=== PATIENT | female | born 1955 | race Caucasian/White ===

== ENCOUNTER 2018-12-31 10:15 | Day surgery (SDC) | payer BC ==
[2018-12-31] MEDS ORDERED: LIDOCAINE 1% 2 ML INJ ID PRN (10:38)
[2018-12-31] MEDS ORDERED: LR 1,000 ML IV ONE (10:38)
[2018-12-31] MEDS ORDERED: PROPOFOL 200 MG/20 ML VIAL ONE (11:57)
[2018-12-31] MEDS ORDERED: PROPOFOL/EMULSION 500 MG/50 ML BOTTLE IV ONE (11:57)
--- NOTE | 2018-12-31 12:04 | PDANEPAE ---
ANE History of Present Illness anemia ANE Past Medical History - Cardiovascular History Hx Hypertension: Yes Hx Arrhythmias: No Hx Chest Pain: No Hx Coronary Artery / Peripheral Vascular Disease: No Hx CHF / Valvular Disease: No Hx Palpitations: Yes Cardiovascular History Comment: hyperlipidemia. BLE edema. pcp monitors bp medications. admitted to [facility] 12/12/18 for low bp - Pulmonary History Hx COPD: No Hx Asthma/Reactive Airway Disease: No Hx Recent Upper Respiratory Infection: No Hx Oxygen in Use at Home: No Hx Sleep Apnea: No Sleep Apnea Screening Result - Last Documented: Positive Pulmonary History Comment: lucille triggers. cough for awhile, comes and goes - Neurologic History Hx Cerebrovascular Accident: No Hx Seizures: No Hx Dementia: No - Endocrine History Hx Diabetes: Yes Hypothyroid: Yes Hyperthyroid: No Obesity: severe Endocrine History Comment: type 2. hypothyroidism. admitted to 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 ascites - Neurological & Psychiatric Hx Hx Neurological and Psychiatric Disorders: No - Cancer History Hx Cancer: No - Congenital Disorder History Hx Congenital Disorders: No - GI History GERD: no Hx Gastrointestinal Disorders: No - Other Health History Other Health History: wears glasses. anemia. admitted to [facility] 12/12/18 received 2 units of PRBC's. dry skin - Chronic Pain History Chronic Pain: Yes (right knee) - Surgical History Prior Surgeries: partial hysterectomy. left knee scope. bunionectomy- left foot ANE Review of Systems Review of systems is: negative Review of Systems: - Exercise capacity Exercise capacity: >=4 METS METS (RN): 4 METS ANE Patient History - Allergies Allergies/Adverse Reactions: atorvastatin Allergy (Verified 12/28/18 12:37) very sick to stomach- couldn't tolerate erythromycin base Allergy (Verified 12/28/18 12:30) Penicillins Allergy (Verified 12/28/18 12:37) Hives simvastatin Allergy (Verified 12/28/18 12:30) - Home Medications Home medications: home medication list seen and reviewed Home Medications: Aspirin 81mg (*) 12/28/18 [Last Taken 12/29/18] Crestor HS 12/28/18 [Last Taken 12/29/18] Cyclobenzaprine HCl HS PRN 12/28/18 [Last Taken 1 Month Ago ~11/30/18] Furosemide 12/28/18 [Last Taken 12/29/18] Glipizide BID 12/28/18 [Last Taken 12/30/18] Herbals/Supplements -Info Only 12/28/18 [Last Taken 12/29/18] Levothyroxine 12/28/18 [Last Taken 12/30/18] Metoprolol Tartrate BID 12/28/18 [Last Taken 12/30/18] Potassium Chloride 12/28/18 [Last Taken 12/30/18] - NPO status NPO Status: no food or drink >8 hours NPO Since - Liquids (Date): 12/31/18 NPO Since - Liquids (Time): 07:30 NPO Since - Solids (Date): 12/29/18 - Anes Hx Anes Hx: no prior problems - Smoking Hx Smoking Status: Former smoker - Family Anes Hx Family Hx Anesthesia Complications: none ANE Labs/Vital Signs - Vital Signs Vital Signs: reviewed preoperatively; see RN documention for details Blood Pressure: 121/68 Heart Rate: 94 Respiratory Rate: 16 O2 Sat (%): 94 Height: 100.2 cm Weight: 103 kg ANE Physical Exam - Airway Neck exam: FROM Mallampati Score: Class 2 Mouth exam: normal dental/mouth exam - Pulmonary Pulmonary: no respiratory distress - Cardiovascular Cardiovascular: regular rate and rhythym - ASA Status ASA Status: III ANE Anesthesia Plan Anesthesia Plan: GA with mask
--- NOTE | 2018-12-31 12:04 | PDGENHP ---
History & Physical Chief Complaint: anemia History of Present Illness: h/o colon polyps, liver disease Relevant Physical Exam: cv [id number]. chest CTA. Abd obeses soft. [id number]
[2018-12-31] MEDS ORDERED: SUCCINYLCHOLINE CHLORIDE 200 MG/10 ML SYR IVP ONE (12:34)
--- NOTE | 2018-12-31 12:46 | GIREPORT ---
[facility] Surgical Services - Endoscopy Department Patient Name: Silvia Parker Procedure Date: 12/31/2018 12:07 PM Patient Type: Outpatient Attending / ER Physician: Luna Hoang MD Procedure: Upper GI endoscopy Indications: Iron deficiency anemia Providers: Luna Hoang MD Medicines: Monitored Anesthesia Care Complications: No immediate complications. Description of Procedure: After obtaining informed consent, the endoscope was passed under direct vision. Throughout the procedure, the patient's blood pressure, pulse, and oxygen saturations were monitored continuously. The Endoscope was intro duced through the mouth, and advanced to the duodenal bulb. The upper GI endo scopy was performed with difficulty due to the patient's respiratory instabil ity (bronchospasm). Procedure was terminated due to decrease in O2 saturati on, biopsies were not obtained. Findings: Grade I varices were found in the lower third of the esophagus. No stig cerda of recent bleeding. Patchy moderately erythematous mucosa without bleeding was found in the gastric antrum. Diffuse moderately erythematous mucosa without active bleeding and with no stigmata of bleeding was found in the duodenal bulb. Estimated Blood Loss: Estimated blood loss: none. Post Op Diagnosis: - Grade I esophageal varices. - Erythematous mucosa in the antrum. - Erythematous duodenopathy. - No specimens collected. Recommendation: - Patient has a contact number available for emergencies. The signs and symptoms of potential delayed complications were discussed with the pat ient. Return to normal activities tomorrow. Written discharge instructions we re provided to the patient. - Resume previous diet. - Continue present medications. - Repeat upper endoscopy in 1 year for surveillance. - Check H. Pylori serology. - Follow up with Dr. Brower. - Use Prilosec OTC 20 mg PO daily. - Discharge patient to home. - Thank you for allowing me to participate in the care of your patient. Attending Participation: I personally performed the entire procedure. Luna Hoang MD Luna Hoang MD 12/31/2018 12:45:36 PM This report has been signed electronicallyLuna Hoang MD Number of Addenda: 0 Note Initiated On: 12/31/2018 12:07 PM [email or web address]
--- NOTE | 2018-12-31 12:48 | GIREPORT ---
[facility] Surgical Services - Endoscopy Department Patient Name: Silvia Parker Procedure Date: 12/31/2018 12:07 PM Patient Type: Outpatient Attending / ER Physician: Luna Hoang MD Procedure: Colonoscopy Indications: High risk colon cancer surveillance: Personal history of colonic polyps Providers: Luna Hoang MD Medicines: Monitored Anesthesia Care Complications: No immediate complications. Description of Procedure: After obtaining informed consent, the scope was passed under direct vis ion. Throughout the procedure, the patient's blood pressure, pulse, and oxyg en saturations were monitored continuously. The Colonoscope with irrigatio n channel was introduced through the anus and advanced to the cecum, identified by appendiceal orifice and ileocecal valve. The colonoscopy was performed without difficulty. The patient tolerated the procedure well. The quality of the bowel preparation was good. The ileocecal valve, appendi ceal orifice, and rectum were photographed. Findings: Hemorrhoids were found on perianal exam. A 4 mm polyp was found in the ascending colon. The polyp was sessile. T he polyp was removed with a cold biopsy forceps. Resection and retrieval w ere complete. Estimated blood loss: 9 mL requiring treatment with placement of hemostatic clip(s). A 5 mm polyp was found in the rectum. The polyp was sessile. The polyp was removed with a cold biopsy forceps. Resection and retrieval were comple te. Estimated blood loss was minimal. Estimated Blood Loss: Estimated blood loss was minimal. Post Op Diagnosis: - Hemorrhoids found on perianal exam. - One 4 mm polyp in the ascending colon, removed with a cold biopsy for ceps. Resected and retrieved. - One 5 mm polyp in the rectum, removed with a cold biopsy forceps. Res ected and retrieved. Recommendation: - Await pathology results. - Patient has a contact number available for emergencies. The signs and symptoms of potential delayed complications were discussed with the pat ient. Return to normal activities tomorrow. Written discharge instructions we re provided to the patient. - Resume previous diet. - Continue present medications. - Repeat colonoscopy in 3 years for surveillance. - Discharge patient to home. - Thank you for allowing me to participate in the care of your patient. Attending Participation: I personally performed the entire procedure. Luna Hoang MD Luna Hoang MD 12/31/2018 12:48:19 PM This report has been signed electronicallyLuna Hoang MD Number of Addenda: 0 Note Initiated On: 12/31/2018 12:07 PM Total Procedure Duration Time 0 hours 8 minutes 48 seconds [email or web address]
[2018-12-31] MEDS ORDERED: NALOXONE HCL 0.4 MG/ML INJ IVP PRN (13:24)
[2018-12-31 14:51] VITALS: BP 121/68
--- NOTE | 2018-12-31 20:24 | POSTANESTH ---
Post Anesthetic Evaluation Cardiovascular Status: Normal, Stable Respiratory Status: Normal, Stable Level of Consciousness/Mental Status: Can Participate in Eval Pain Control: Adequate, Prn Tx Ordered Nausea/Vomiting Control: Adequate, Prn Tx Ordered Complications Possibly Related to Anesthesia: None Noted (Pt laryngospasmed during EGD. Pt's oxygen saturation acutely dropped. Positive pressure ventilation attempted withought success to break laryngospasm. IV Succinylcholine used with success. Pt oxygen saturation recovered with good mask ventilation. LMA inserted and continued with colonscopy as all other vitals remained stable throughout laryngospasm episode. Rest of procedure uneventful and patient did well post procedure.)
== END 2018-12-31 14:47 | disposition home or self-care (01) ==
LOC: FSGY 10:15
PROVIDERS: ATTEND Internal Medicine Gastroenterology
DX: Z12.11 Encounter for screening for malignant neoplasm of colon (principal); K63.5 Polyp of colon; K62.1 Rectal polyp; D50.9 Iron deficiency anemia, unspecified; I85.00 Esophageal varices without bleeding; R09.02 Hypoxemia; J38.5 Laryngeal spasm; I10 Essential (primary) hypertension; K74.60 Unspecified cirrhosis of liver; E11.9 Type 2 diabetes mellitus without complications; E78.5 Hyperlipidemia, unspecified; E03.9 Hypothyroidism, unspecified; E66.9 Obesity, unspecified; E55.9 Vitamin D deficiency, unspecified; Z79.82 Long term (current) use of aspirin; Z86.010 Personal history of colon polyps; Z87.891 Personal history of nicotine dependence; Z82.49 Family history of ischemic heart disease and other diseases of the circulatory system; Z88.0 Allergy status to penicillin
CPT/HCPCS: J0330; J2704